=== PATIENT | female | born 1950 | race Caucasian/White ===

== ENCOUNTER 2024-04-25 14:10 | Inpatient (IN) | payer OTHER ==
--- NOTE | 2024-04-25 14:53 | RAD REPORT ---
EXAMINATION: ONE VIEW CHEST XR CLINICAL INDICATION: CHEST PAIN TECHNIQUE: Frontal chest projection is submitted. Examination is limited by patient positioning and t echnique. COMPARISON: No prior exam. FINDINGS: The lungs are diffusely emphysematous but grossly clear. The heart is upper limit of normal in size. No displaced fractures identified. IMPRESSION: COPD without an acute process suspected.
[2024-04-25 15:36] LABS: Absolute Basophils 0.1 K/uL (0-0.5); Absolute Eosinophils 0.2 K/uL (0-0.5); Absolute Lymphocytes (CBC) 3.5 K/uL (0.7-4.9); Absolute Monocytes 0.8 K/uL (0.1-1.3); Absolute Neutrophil 5.9 K/uL (1.8-8.0); Basophils % 0.8 % (0-1.3); Eosinophils % 2.1 % (0-4.4); Hematocrit 46.9 % (36.0-45.0); Hemoglobin 15.5 g/dL (12.0-15.0); Lymphocytes % 33.2 % (15.3-44.8); MCH 29.1 pg (27.0-35.0); MCV 88.1 fL (80-100); MPV 8.4 fL (7.6-11.3); Monocytes % 7.9 % (3.3-12.3); Platelets 312 thou/uL (152-406); RBC Red Blood Cell Count 5.33 M/uL (3.86-4.86); Red Cell Distribution Width 13.6 % (12.1-15.2)
[2024-04-25 15:37] LABS: PT Prothrombin Time 11.4 SECONDS (9.4-12.5); Protime INR 1.02
[2024-04-25 15:56] LABS: Anion Gap 9.5 mEq/L (5.0-15.0); Potassium 3.5 mEq/L (3.5-5.1)
[2024-04-25 15:57] LABS: Albumin 3.7 g/dL (3.4-5.0); Bilirubin Direct 0.1 mg/dL (0-0.2); Bilirubin Indirect, Calculated 0.2 mg/dL (0.2-0.8); Bilirubin Total 0.3 mg/dL (0.2-1.0); Globulin 3.8 g/dL (2.3-3.5); Protein, Total 7.5 g/dL (6.4-8.2)
[2024-04-25 15:58] LABS: Troponin High Sensitivity 17.6 (<58.9)
--- NOTE | 2024-04-25 16:43 | EDPHYS ---
Physician Documentation [facility] Name: Maribel Chacon Age: 73 yrs Sex: Female : 1950 Arrival Date: 04/25/2024 Time: 14:10 Bed 14 Private MD: ED Physician Derrick Bray HPI: 04/25 15:02 This 73 yrs old Unknown Female presents to ER via Ambulatory with complaints of Chest sp3 Pain, High Blood Pressure. 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 Today she states that it happened again while in school described as a crushing chest pain midsternum and she "looked pale" according to bystanders. School nurse advised her to come to the ED for evaluation. Patient states that she does not want to be admitted to the hospital under any circumstance. Her chest pain is now resolved and she would like to go home because she "has to teach tomorrow". I have advised her normal protocols for intermediate risk chest pain. See MDM for further discussion.. Historical: - Allergies: 14:26 Sulfa (Sulfonamide Antibiotics); iw - Immunization history:: Adult Immunizations not up to date. - Infectious Disease History:: Denies. - Social history:: Smoking status: Patient denies any tobacco usage or history of. ROS: 15:06 Constitutional: Negative for fever, chills, and weight loss, Eyes: Negative for injury, sp3 pain, redness, and discharge, ENT: Negative for injury, pain, and discharge, Neck: Negative for injury, pain, and swelling, Respiratory: Negative for shortness of breath, cough, wheezing, and pleuritic chest pain, Abdomen/GI: Negative for abdominal pain, nausea, vomiting, diarrhea, and constipation, Back: Negative for injury and pain, MS/Extremity: Negative for injury and deformity, Skin: Negative for injury, rash, and discoloration, Neuro: Negative for headache, weakness, numbness, tingling, and seizure, Psych: Negative for depression, anxiety, suicide ideation, homicidal ideation, and hallucinations, Allergy/Immunology: Negative for hives, rash, and allergies, Endocrine: Negative for neck swelling, polydipsia, polyuria, polyphagia, and marked weight changes, Hematologic/Lymphatic: Negative for swollen nodes, abnormal bleeding, and unusual bruising, 15:06 All other systems are negative, Exam: 15:09 Constitutional: This is a well developed, well nourished patient who is awake, alert, sp3 and in no acute distress. Head/Face: Normocephalic, atraumatic. Eyes: Pupils equal round and reactive to light, extra-ocular motions intact. Lids and lashes normal. Conjunctiva and sclera are non-icteric and not injected. Cornea within normal limits. Periorbital areas with no swelling, redness, or edema. ENT: Nares patent. No nasal discharge, no septal abnormalities noted. External auditory canals are clear. Oropharynx with no redness, swelling, or masses, exudates, or evidence of obstruction, uvula midline. Mucous membranes moist. Neck: Trachea midline, no thyromegaly or masses palpated, and no cervical lymphadenopathy. Supple, full range of motion without nuchal rigidity, or vertebral point tenderness. No Meningismus. Chest/axilla: Normal chest wall appearance and motion. Nontender with no deformity. No lesions are appreciated. Cardiovascular: Regular rate and rhythm with a normal S1 and S2. No gallops, murmurs, or rubs. Normal PMI, no JVD. No pulse deficits. Respiratory: Lungs have equal breath sounds bilaterally, clear to auscultation and percussion. No rales, rhonchi or wheezes noted. No increased work of breathing, no retractions or nasal flaring. Abdomen/GI: Soft, non-tender, with normal bowel sounds. No distension or tympany. No guarding or rebound. No evidence of tenderness throughout. Back: No spinal tenderness. No costovertebral tenderness. Full range of motion. Skin: Warm, dry with normal turgor. Normal color with no rashes, no lesions, and no evidence of cellulitis. MS/ Extremity: Pulses equal, no cyanosis. Neurovascular intact. Full, normal range of motion. Neuro: Awake and alert, GCS 15, oriented to person, place, time, and situation. Cranial nerves II-XII grossly intact. Motor strength 5/5 in all extremities. Sensory grossly intact. Cerebellar exam normal. Normal gait. Psych: Awake, alert, with orientation to person, place and time. Behavior, mood, and affect are within normal limits. 15:09 ECG was reviewed by the Attending Physician. EKG demonstrates normal sinus rhythm at 91 bpm with normal intervals, normal QRS, normal axis, nonspecific diffuse ST/T changes without evidence of acute ischemia. Vital Signs: 14:25 Pulse 90; Resp 16; Temp 97.5; Pulse Ox 98% ; Height 5 ft. 2 in. ; Pain 4/10; iw 14:45 BP 160 / 77; Pulse 83; Resp 16; Pulse Ox 99% ; me1 15:00 BP 130 / 97; Pulse 88; Resp 16; Pulse Ox 99% on R/A; me1 16:00 BP 146 / 78; Pulse 81; Resp 12; Pulse Ox 97% on R/A; me1 17:00 BP 150 / 65; Pulse 84; Resp 18; Pulse Ox 99% ; me1 18:00 BP 157 / 73; Pulse 82; Resp 17; Pulse Ox 98% ; me1 14:25 Pain Scale: Adult iw MDM: 14:27 Medical Screening Exam initiated sp3 15:10 Data reviewed: vital signs, nurses notes, lab test result(s), EKG, radiologic studies. sp3 ED course: 73-year-old female with nonspecific chest pain off and on for 2 months with a episode today at school at her place of occupation, now resolved. Differential diagnosis includes acute coronary syndrome, angina, gastritis, GERD, musculoskeletal pain, among others. Patient also states she has been having a lot of stress due to her son having a warrant and her having to post a $100,000 goss. 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 Patient vehemently refuses to be admitted under any circumstance because she "has to teach tomorrow". I explained to her standard chest pain algorithms for intermediate risk which I classify her in given her past medical history. CT scan is not available here however I do not believe patient has a PE or aortic dissection. Ideally we would want patient to be admitted for serial cardiac markers and cardiology consultation however patient declines. Will obtain 1 set and outpatient follow-up in cardiology office which she states she will do. She understands the risks of potentially missing a cardiac event including , disability, pain and suffering, etc.. 16:37 ED course: Initial workup negative. Will place patient in 23-hour observation with sp3 morning stress test. I discussed the case with internal medicine who will be handling her moving forward.. 04/25 14:28 Order name: Basic Metabolic Panel; Complete Time: 16:24 sp3 04/25 14:28 Order name: CBC with Diff; Complete Time: 16:24 sp3 04/25 14:28 Order name: LFT's; Complete Time: 16:24 sp3 04/25 14:28 Order name: Magnesium; Complete Time: 16:24 sp3 04/25 14:28 Order name: NT PRO-BNP; Complete Time: 16:24 sp3 04/25 14:28 Order name: PT-INR; Complete Time: 16:24 sp3 04/25 14:28 Order name: Troponin HS; Complete Time: 16:24 sp3 04/25 15:13 Order name: D-Dimer; Complete Time: 16:24 sp3 04/25 17:23 Order name: CBC with Automated Diff EDMS 04/25 17:23 Order name: CBC with Automated Diff EDMS 04/25 17:23 Order name: Lipid Profile EDMS 04/25 17:23 Order name: Lipid Profile EDMS 04/25 17:23 Order name: Troponin High Sensitivity EDMS 04/25 17:23 Order name: Troponin High Sensitivity EDMS 04/25 17:23 Order name: Troponin High Sensitivity EDMS 04/25 14:28 Order name: XRAY Chest (1 view); Complete Time: 14:58 sp3 04/25 17:23 Order name: Echo with Doppler EDMS 04/25 17:23 Order name: Echo with Doppler EDMS 04/25 17:23 Order name: CONS Physician Consult EDMS 04/25 14:28 Order name: Cardiac monitoring; Complete Time: 15:08 sp3 04/25 14:28 Order name: EKG - Nurse/Tech; Complete Time: 15:08 sp3 04/25 14:28 Order name: IV Saline Lock; Complete Time: 15:21 sp3 04/25 14:28 Order name: Labs collected and sent; Complete Time: 15:21 sp3 04/25 14:28 Order name: O2 Per Protocol; Complete Time: 15:08 sp3 04/25 14:28 Order name: O2 Sat Monitoring; Complete Time: 15:08 sp3 Administered Medications: No medications were administered Disposition Summary: 04/25/24 16:42 Hospitalization Ordered Notes: Hospitalization Status: Observation sp3 Provider: Ángel Torres sp3 Location: Telemetry/MedSurg (observation) sp3 Condition: Stable sp3 Problem: new sp3 Symptoms: are unchanged sp3 Bed/Room Type: Standard sp3 Room Assignment: 401(04/25/24 17:41) jaShayan Diagnosis - Chest pain, unspecified sp3 Forms: - Medication Reconciliation Form sp3 - SBAR form sp3 - Leadership Thank You Letter sp3 Signatures: Dispatcher [employer] EDMS Sada Gilliam bd Meli Arteaga, RN WHITLEY iw Damien Fererr RN RN ja1 Derrick Bray MD MD sp3 Corrections: (The following items were deleted from the chart) 14:28 14:28 BASIC METABOLIC PANEL+C.LAB.BRZ ordered. EDMS EDMS 14:28 14:28 CBC+H.LAB.BRZ ordered. EDMS EDMS 14:28 14:28 HEPATIC FUNCTION+C.LAB.BRZ ordered. EDMS EDMS 14:28 14:28 MAGNESIUM+C.LAB.BRZ ordered. EDMS EDMS 14:28 14:28 PROBNP+C.LAB.BRZ ordered. EDMS EDMS 14:28 14:28 PROTIME (+INR)+COAG.LAB.BRZ ordered. EDMS EDMS 14:28 14:28 Troponin High Sensitivity+C.LAB.BRZ ordered. EDMS EDMS 14:28 14:28 Chest Single View+RAD.RAD.BRZ ordered. EDMS EDMS 17:41 16:42 sp3 bd 17:41 17:41 204 bd ja1
--- NOTE | 2024-04-25 16:43 | ER ---
Nurse's Notes [facility] Name: Maribel Chacon Age: 73 yrs Sex: Female : 1950 Arrival Date: 04/25/2024 Time: 14:10 Bed 14 Private MD: Diagnosis: Chest pain, unspecified Presentation: 04/25 14:24 Chief complaint: Patient states: has been having episodes of chest pain that radiates iw up into her shoulders and head , happening for months , today at school it happened again and someone told her she looked pale and wanted to get checked out, the episodes last about 15 minutes. Coronavirus screen: At this time, the client does not indicate any symptoms associated with coronavirus-19. Ebola Screen: No symptoms or risks identified at this time. Initial Sepsis Screen: Does the patient meet any 2 criteria? No. Patient's initial sepsis screen is negative. Does the patient have a suspected source of infection? No. Patient's initial sepsis screen is negative. Risk Assessment: Do you want to hurt yourself or someone else? Patient reports no desire to harm self or others. 14:24 Method Of Arrival: Ambulatory iw 14:24 Acuity: HANNA 3 iw 14:25 Onset of symptoms was 2023. iw Historical: - Allergies: 14:26 Sulfa (Sulfonamide Antibiotics); iw - Immunization history:: Adult Immunizations not up to date. - Infectious Disease History:: Denies. - Social history:: Smoking status: Patient denies any tobacco usage or history of. Screenin:20 [facility] ED Fall Risk Assessment (Adult) History of falling in the last 3 months, me1 including since admission No falls in past 3 months (0 pts) Confusion or Disorientation No (0 pts) Intoxicated or Sedated No (0 pts) Impaired Gait No (0 pts) Mobility Assist Device Used No (0 pt) Altered Elimination No (0 pt) Score/Fall Risk Level 0 - 2 = Low Risk Maintained a safe environment, Provided non-skid footwear, Hourly rounding (assess needs \T\ fall precautionary measures) done. Abuse screen: Denies threats or abuse. Nutritional screening: No deficits noted. Tuberculosis screening: No symptoms or risk factors identified. Assessment: 15:20 General: Appears comfortable, well groomed, well developed, well nourished, Behavior is me1 calm, cooperative, appropriate for age, Reports has been having episodes of chest pain that radiates up into her shoulders and head , happening for months , today at school it happened again and someone told her she looked pale and wanted to get checked out, the episodes last about 15 minutes. Pain: Complains of pain in chest Pain radiates to right sternocleidomastoid, left sternocleidomastoid, right arm and left arm Pain currently is 0 out of 10 on a pain scale. at worst was 10 out of 10 on a pain scale. Quality of pain is described as pressure, Pain began suddenly, Is episodic, lasting a few minutes. Also complains of shortness of breath. Neuro: Level of Consciousness is awake, alert, obeys commands, Oriented to person, place, time, situation, Appropriate for age. Cardiovascular: Patient's skin is warm and dry. Respiratory: Airway is patent Trachea midline Respiratory effort is even, unlabored, Respiratory pattern is regular, symmetrical. GI: No signs and/or symptoms were reported involving the gastrointestinal system. Patient currently denies nausea. : No signs and/or symptoms were reported regarding the genitourinary system. EENT: No signs and/or symptoms were reported regarding the EENT system. Derm: Skin is intact, is healthy with good turgor, Skin is pink, warm \T\ dry. Musculoskeletal: No signs and/or symptoms reported regarding the musculoskeletal system. Vital Signs: 14:25 Pulse 90; Resp 16; Temp 97.5; Pulse Ox 98% ; Height 5 ft. 2 in. ; Pain 4/10; iw 14:45 BP 160 / 77; Pulse 83; Resp 16; Pulse Ox 99% ; me1 15:00 BP 130 / 97; Pulse 88; Resp 16; Pulse Ox 99% on R/A; me1 16:00 BP 146 / 78; Pulse 81; Resp 12; Pulse Ox 97% on R/A; me1 17:00 BP 150 / 65; Pulse 84; Resp 18; Pulse Ox 99% ; me1 18:00 BP 157 / 73; Pulse 82; Resp 17; Pulse Ox 98% ; me1 14:25 Pain Scale: Adult iw ED Course: 14:17 Patient arrived in ED. sj2 14:20 Derrick Bray MD is Attending Physician. sp3 14:25 Triage completed. iw 14:45 Alison King, RN is Primary Nurse. me1 14:48 XRAY Chest (1 view) In Process Unspecified. EDMS 15:08 EKG done, by ED staff, reviewed by Derrick Bray MD. me1 15:20 No provider procedures requiring assistance completed. Patient maintains SpO2 me1 saturation greater than 95% on room air. 15:20 Patient has correct armband on for positive identification. Bed in low position. Call me1 light in reach. Side rails up X 1. Provided Education on: POC. Verbalized understanding.. Client placed on continuous cardiac and pulse oximetry monitoring. NIBP monitoring applied. quality assurance monitor on. Pulse ox on. NIBP on. 15:21 D-Dimer Sent. ld1 15:21 Basic Metabolic Panel Sent. ld1 15:21 CBC with Diff Sent. ld1 15:21 LFT's Sent. ld1 15:21 Magnesium Sent. ld1 15:21 NT PRO-BNP Sent. ld1 15:21 PT-INR Sent. ld1 15:21 Troponin HS Sent. ld1 15:22 Initial lab(s) drawn, by me, sent to lab. Inserted saline lock: 20 gauge in right bc6 forearm, using aseptic technique. Blood collected. Flushed with 10 mL NS. 16:42 Ángel Torres MD is Hospitalizing Provider. sp3 17:50 Patient admitted, IV remains in place. me1 17:52 Arm band placed on Patient placed in an exam room. me1 Administered Medications: No medications were administered Medication: 15:20 VIS not applicable for this client. me1 Outcome: 16:42 Decision to Hospitalize by Provider. sp3 17:50 Admitted to Tele accompanied by tech, via wheelchair, room 401, with chart, Report me1 called to faxed, receipt confirmed with Maddison 17:50 Condition: stable 17:50 Instructed on the need for admit, 18:20 Patient left the ED. me1 Signatures: Dispatcher [employer] Meli Givens, WHITLEY ARREAGA Shakira Mujica RN RN ld1 Derrick Bray MD MD sp3 Judy Back 6 Alison King, WHITLEY RN me1 Juan Manuel Person sj2 Corrections: (The following items were deleted from the chart) 14:26 14:25 Pulse 90bpm; Resp 16bpm; Pulse Ox 98%; Temp 97.5F; Pain 410, Adult; iw iw 15:20 14:24 Chief complaint: Patient states: has been having episodes of chest pain that 1 radiates up into her shoulders and head , happening for months , today at school it happened again and someone told her she looked pale and wanted to get checked out, the episodes last about 15 minutes iw
--- NOTE | 2024-04-25 17:09 | P.HP ---
Patient History Date of Service: 04/25/24 Physical Examination - Studies Laboratory Data (last 24 hrs) 04/25/24 04/25/24 04/25/24 15:20 15:20 15:20 WBC 10.50 Hgb 15.5 H Hct 46.9 H Plt Count 312 PT 11.4 INR 1.02 Sodium 140 Potassium 3.5 BUN 24 H Creatinine 0.84 Glucose 133 H Magnesium 2.0 Total Bilirubin 0.3 AST 13 L ALT 24 Alkaline Phosphatase 77 Assessment and Plan - Advance Directives Does patient have a Living Will: No Does patient have a Durable POA for Healthcare: No
--- NOTE | 2024-04-25 17:25 | P.HP ---
Certification for Inpatient Patient admitted to: Observation With expected LOS: <2 Midnights Patient will require the following post-hospital care: None Practitioner: I am a practitioner with admitting privileges, knowledge of patient current condition, hospital course, and medical plan of care. Services: Services provided to patient in accordance with Admission requirements found in Title 42 Section 412.3 of the Code of Federal Regulations Patient History Date of Service: 04/25/24 Reason for admission: Chest pain rule out acute coronary syndrome History of Present Illness: Patient is a 73-year-old female came to the hospital with chest pain. Patient has been having chest pain for the last week and a half. She has had multiple issues with her 2 sons. One of them was arrested after him the 18 hi. The other 1 is also in retirement and he is going to be coming out in August. She has been overwhelmed with what has been going on with their lives. However, she also has multiple risk factors including hypertension, diabetes type 2, dyslipidemia. She also has a family history of heart disease. Patient's mother had heart disease in her 70s and she has a brother in his 60s with heart disease. Patient is also has been doing a lot of heavy lifting. She is has some reproducible chest pain. In light of everything that is going on with her and the fact that she has not really done a lot to care for herself including not getting any preventative screening she will be admitted to the hospital for observation. Her initial troponin is negative. No abnormalities on the EKG. Patient will get echocardiogram and stress test and if this is negative she should be able to discharge with outpatient follow-up with her LOUANN, Pallavi Zabala nurse practitioner. - Past Medical/Surgical History -: Hypertension -: Type 2 diabetes -: Dyslipidemia - Social History Smoking Status: Former smoker Alcohol use: No CD- Drugs: No Review of Systems 10-point ROS is otherwise unremarkable Physical Examination - Vital Signs Temperature: 98 F Blood Pressure: 110/60 Pulse: 80 Respirations: 18 Pulse Ox (%): 95 - Physical Exam General: Alert, In no apparent distress, Oriented x3 HEENT: Atraumatic, PERRLA, Mucous membr. moist/pink, EOMI, Sclerae nonicteric Neck: Supple, 2+ carotid pulse no bruit, No LAD, Without JVD or thyroid abnormality Respiratory: Clear to auscultation bilaterally, Normal air movement Cardiovascular: Regular rate/rhythm, Normal S1 S2 Gastrointestinal: Normal bowel sounds, Soft and benign, Non-distended, No tenderness Musculoskeletal: No clubbing, No swelling, No tenderness Integumentary: No rashes Neurological: Normal gait, Normal speech, Normal strength at 5/5 x4 extr, Normal tone, Sensation intact, Cranial nerves 3-12 intact, Normal affect Lymphatics: No axilla or inguinal lymphadenopathy - Studies Laboratory Data (last 24 hrs) 04/25/24 04/25/24 04/25/24 15:20 15:20 15:20 WBC 10.50 Hgb 15.5 H Hct 46.9 H Plt Count 312 PT 11.4 INR 1.02 Sodium 140 Potassium 3.5 BUN 24 H Creatinine 0.84 Glucose 133 H Magnesium 2.0 Total Bilirubin 0.3 AST 13 L ALT 24 Alkaline Phosphatase 77 Assessment & Plan - Problems (Diagnosis) (1) Chest pain, rule out acute myocardial infarction Current Visit: Yes Status: Acute - Plan -High-sensitivity troponin -Cardiology consultation -Echocardiogram and stress test per cardiology recommendation -Repeat EKG -Possibly costochondritis with anti-inflammatories -Lipid profile -Strategic Buyer regarding modifying risk for cardiac disease Discharge Plan: Home Plan to discharge in: 24 Hours - Advance Directives Does patient have a Living Will: No Does patient have a Durable POA for Healthcare: No - Code Status/Comfort Care Code Status Assessed: Yes Code Status: Full Code Critical Care: No Time Spent Managing PTS Care (In Minutes): 45
[2024-04-25] MEDS: METOPROLOL TARTRATE 5 MG/5 ML INJ IV STA (18:42)
[2024-04-25] MEDS: MORPHINE 2 MG/ML SYR IV PRN (18:43)
[2024-04-25] MEDS: METOPROLOL TAR 25 MG TAB PO SCH (21:14)
[2024-04-25] MEDS: ENOXAPARIN 40 MG/0.4 ML SQ SCH (21:15)
[2024-04-25] MEDS: NITROGLYCERIN 1 GM PKT TD ONE (21:16)
[2024-04-25] MEDS: HYDROCORTISONE SUC 100 MG INJ IV ONE (21:18)
[2024-04-25 22:50] VITALS: BMI 25.8
[2024-04-26 06:58] LABS: Absolute Basophils 0.1 K/uL (0-0.5); Absolute Eosinophils 0.1 K/uL (0-0.5); Absolute Lymphocytes (CBC) 3.4 K/uL (0.7-4.9); Absolute Monocytes 0.4 K/uL (0.1-1.3); Absolute Neutrophil 4.7 K/uL (1.8-8.0); Basophils % 1.1 % (0-1.3); Eosinophils % 0.9 % (0-4.4); Hematocrit 45.4 % (36.0-45.0); Hemoglobin 14.6 g/dL (12.0-15.0); MCH 28.6 pg (27.0-35.0); MCHC 32.2 g/dL (32.0-36.0); MCV 88.8 fL (80-100); MPV 8.5 fL (7.6-11.3); Monocytes % 4.7 % (3.3-12.3); Neutrophils % 54.3 % (41.7-73.7); Nucleated Red Blood Cells % 0.1 % (0-0); Platelets 298 thou/uL (152-406); RBC Red Blood Cell Count 5.12 M/uL (3.86-4.86); Red Cell Distribution Width 13.2 % (12.1-15.2)
[2024-04-26 07:23] LABS: Troponin High Sensitivity 14.2 pg/mL (<58.9)
[2024-04-26] MEDS: PNEUMOCOCCAL VACCINE 0.5 ML IMVAC ONE (07:45)
[2024-04-26] MEDS: ASPIRIN EC 81 MG TAB PO SCH (07:52)
[2024-04-26] MEDS ORDERED: REGADENOSON 0.4 MG/5 ML SYR IV ONE (08:16)
--- NOTE | 2024-04-26 09:31 | RAD REPORT ---
EXAM: Nuclear medicine cardiac perfusion examination with ejection fraction HISTORY: Chest pain TECHNIQUE: Rest images: 10.8 mCi technetium 99m sestamibi Stress images: 30.4 mCi of technetium 99m sestamibi; Lexiscan COMPARISON: None. FINDINGS: Tomographic images: Fixed defect at the apex, and other fixed defects at the apical to mid septum and anterior wall. Large reversible defect involving the mid to basal anterior wall, mid segment of the septum, and lateral wall apical segment. Gated images: Normal wall motion and ejection fraction of 64%. EDV: 60 mL ESV: 21 mL TID: 1.09 IMPRESSION: Large reversible defect involving the mid to basal anterior wall, mid segment of the septum, and late ral wall apical segment, concerning for ischemia. Left ventricular ejection fraction:64%, within normal. THIS REPORT CONTAINS FINDINGS THAT MAY BE CRITICAL TO PATIENT CARE. The findings were verbally commun icated via telephone to Ángel Torres MD on 04/26/2024 9:28 AM.
--- NOTE | 2024-04-26 12:18 | P.CNS ---
Date of Consult: 04/26/24 Chief Complaint: Chest pain rule out acute coronary syndrome History of Present Illness: Patient with PMH of HTN, HLD, DM presented with chest pain. pressure, left sided that has been going on for months with exertion last up to 15 minutes, denies any other cardiac symptoms. Allergies Sulfa (Sulfonamide Antibiotics) Allergy (Verified 04/25/24 18:34) Shortness of breath Home medications list reviewed: Yes Home Medications: Dapagliflozin Propanediol [Farxiga] 10 mg PO DAILY 04/25/24 Metformin HCl [Metformin HCl ER] 1,000 mg PO BID 04/25/24 Ondansetron [Zofran] 4 mg PO BID 04/25/24 Rosuvastatin Calcium 10 mg PO DAILY 04/25/24 Tirzepatide [Mounjaro] 5 mg SQ SEECOM 04/25/24 Valsartan 160 mg PO DAILY 04/25/24 - Past Medical/Surgical History Diabetic: Yes -: Hypertension -: Type 2 diabetes -: Dyslipidemia - Social History Alcohol use: No CD- Drugs: No Place of Residence: Home Review of Systems 10-point ROS is otherwise unremarkable Physical Examination Temp Pulse Resp BP Pulse Ox 98.3 F 65 18 132/74 99 04/26/24 12:00 04/26/24 12:00 04/26/24 12:10 04/26/24 12:00 04/26/24 12:10 General: Alert, In no apparent distress HEENT: Atraumatic, PERRLA, Mucous membr. moist/pink, EOMI, Sclerae nonicteric Neck: Supple, 2+ carotid pulse no bruit, No LAD, Without JVD or thyroid abnormality Respiratory: Clear to auscultation bilaterally, Normal air movement Cardiovascular: Regular rate/rhythm, Normal S1 S2 Gastrointestinal: Normal bowel sounds, No tenderness Musculoskeletal: No tenderness Integumentary: No rashes Neurological: Normal gait, Normal speech, Normal tone, Normal affect Lymphatics: No axilla or inguinal lymphadenopathy Laboratory Data (last 24 hrs) 04/25/24 04/25/24 04/25/24 15:20 15:20 15:20 WBC 10.50 Hgb 15.5 H Hct 46.9 H Plt Count 312 PT 11.4 INR 1.02 Sodium 140 Potassium 3.5 BUN 24 H Creatinine 0.84 Glucose 133 H Magnesium 2.0 Total Bilirubin 0.3 AST 13 L ALT 24 Alkaline Phosphatase 77 - Problems (1) HTN (hypertension) Current Visit: Yes Status: Acute Plan: continue metoprolol 25 mg po BID Continue to monitor BP. (2) HLD (hyperlipidemia) Current Visit: Yes Status: Acute Plan: Patient LDL is normal but would recommend starting Crestor 20 mg daily (3) Chest pain, rule out acute myocardial infarction Current Visit: Yes Status: Acute Plan: Patient had a stress test that is abnormal, showning possible reversible defect in LAD and LCX territory. NPO after midnight for coronary angiogram in am continue ASA 81 mg daily
--- NOTE | 2024-04-26 14:43 | TREADPHA ---
DX: CHEST PAIN Date of Study: 04/26/2024 Ht: 5' 2 " Wt: 141 lb 6.4 oz Consulting Physician: CAMILA MEDICATIONS: HISTORY: MEDICAL HISTORY OF HYPERTENSION, DIABETES MELLITUS AND HIGH CHOLESTEROL. PHYSICIAL EXAMINATION: RESTING B.P.: 146/85 RESTING H.R.: 71 RESTING EKG: NORMAL SINUS RHYTHM. PROTOCOL: LEXISCAN EXERCISE TIME: 3:30 B.P. AT PEAK STRESS: 152/74 IMPRESSION: LEXISCAN INJECTED PER PROTOCOL. CARDIOLITE INJECTED. SEE NUCLEAR MEDICINE REPORT. NO SUPRAVENTRICULAR OR VENTRICULAR TACHYCARDIA. NO ARRHYTHMIAS NOTED. DENIES SHORTNESS OF BREATH. COMPLAINTS OF MILD CHEST PAIN DURING TEST. CAFFEINE PROVIDED.
[2024-04-26] MEDS: ALPRAZOLAM 0.25 MG TABLET PO PRN (21:26)
[2024-04-27] MEDS ORDERED: NA CHLORIDE 0.9% 500 ML ONE (09:54)
[2024-04-27] MEDS ORDERED: FENTANYL CITR 100 MCG/2 ML ONE (10:10)
[2024-04-27] MEDS ORDERED: HEPA 1000U/500MLS 3,000 UNIT/1,500 ML BAG IV ONE (10:10)
[2024-04-27] MEDS ORDERED: HEPARIN 5000 UNIT/ML 1 ML VIAL ONE (10:10)
[2024-04-27] MEDS ORDERED: MIDAZOLAM HCL 2 MG/2 ML INJ ONE (10:10)
[2024-04-27] MEDS ORDERED: LIDOCAINE 1% 20 ML MDV ONE (10:10)
[2024-04-27] MEDS ORDERED: PNEUMOCOCCAL VACCINE 0.5 ML IMVAC ONE (12:00)
[2024-04-27 12:17] VITALS: O2SAT 94
--- NOTE | 2024-04-27 14:18 | ECHO ---
HEIGHT: 5 ft 2 in WEIGHT: 141 lb 6.4 oz DATE OF STUDY: 04/26/[address]: Ángel Torres MD 2-DIMENSIONAL: YES M.MODE: YES DOPPLER: YES COLOR FLOW: YES TDS: NO PORTABLE: YES DEFINITY: NO BUBBLE STUDY: NO DIAGNOSIS: CHEST PAIN, RULE OUT ACS CARDIAC HISTORY: CATHERIZATION: NO SURGERY: NO PROSTHETIC VALVE: NO PACEMAKER: NO MEASUREMENTS (cm) DIASTOLIC (NORMALS) SYSTOLIC (NORMALS) IVSd 1.2 (0.6-1.2) LA Diam 2.9 (1.9-4.0) LVEF 60-65% LVIDd 4.6 (3.5-5.7) LVIDs 3.0 (2.0-3.5) %FS 35% LVPWd 1.2 (0.6-1.2) Ao Diam 2.5 (2.0-3.7) 2 DIMENSIONAL ASSESSMENT: RIGHT ATRIUM: NORMAL LEFT ATRIUM: NORMAL RIGHT VENTRICLE: NORMAL LEFT VENTRICLE: NORMAL TRICUSPID VALVE: NORMAL MITRAL VALVE: NORMAL PULMONIC VALVE: NORMAL AORTIC VALVE: NORMAL PERICARDIAL EFFUSION: NONE AORTIC ROOT: NORMAL LEFT VENTRICULAR WALL MOTION: NORMAL. DOPPLER/COLOR FLOW: NORMAL. COMMENTS: 1. NORMAL LEFT VENTRICULAR SYSTOLIC FUNCTION. LEFT VENTRICULAR EJECTION FRACTION 60-65%. NORMAL WALL MOTION. 2. NORMAL DIASTOLIC FUNCTION. TECHNOLOGIST: ROME SCHMIDT
[2024-04-27] MEDS: HEPARIN/D5W 25,000 UNIT/500 ML BAG IV SCH (16:08)
[2024-04-27 17:20] VITALS: BP 140/64; TEMP 98.2
[2024-04-27] MEDS ORDERED: Mupirocin NASAL 2 APPL/1 GM TUBE NAS SCH (21:00)
--- NOTE | 2024-04-28 11:14 | OP ---
Date of Procedure: 04/27/2024 Surgeon: Fransisco Galarza Procedures Performed: 1.Left heart catheterization. 2.Selective coronary angiogram. Indication For Procedure: Unstable angina. Abnormal stress test. Complications: None. Estimated Blood Loss: Less than 50 cc. Access: Right radial, closed by TR band. Sedation Time: 20 minutes with 1 of Versed and 25 of fentanyl. Description Of Procedure: After risks, and benefits, and alternatives were explained to the patient, patient agreed to proceed with procedure and signed informed consent. The patient was brought back to the blood bank laboratory professional, prepped and draped in sterile fashion. Time-out was performed. Sedation was admini stered. Next, right radial access was obtained using ultrasound-guided micropuncture technique. Tig er 4.0 catheter was advanced over a J-wire to the LV cavity. Pullback did not show any gradient. Sa me catheter was used for selective angiogram of the left and right coronary system. At the end of pr ocedure, catheter was removed over a J-wire. Sheath was removed. TR band was applied. Hemostasis w as achieved and patient was moved back to Recovery in stable condition. Findings: 1.Left main absent. 2.LAD; proximal 99% disease followed by mid diffuse 70% disease, and mid to distal mild luminal irre gularities. 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 4.RCA; large dominant with a proximal, mild luminal irregularities, and mid 60% to 70% disease, then mild luminal irregularities. 5.RPDA with ostial to proximal 60% to 70% disease and mild luminal irregularities. Assessment And Plan: Significant LAD, significant left circ, and significant RCA disease. The plan will be to transfer for urgent inpatient CABG. CAROLYN/RADHA Voice ID: [id number] Report ID: [id number]
--- NOTE | 2024-05-01 11:03 | EKG ---
Test Date: 2024-04-25 Test Time: 15:01:37 Lead Nurse: MEASUREMENT RESULTS: Intervals: Rate: 91 IN: 156 QRSD: 80 QT: 368 QTc: 452 [place]: P: 66 IN: 156 QRS: 33 T: 111 INTERPRETIVE STATEMENTS: Normal sinus rhythm Nonspecific ST and T wave abnormality Abnormal ECG No previous ECG available for comparison Electronically Signed On 05-01-24 10:57:39 BOARD CERTIFIED ORTHODONTIST by Fransisco Galarza
== END 2024-04-27 17:45 | disposition short-term general hospital (02) | DRG 287 ==
LOC: ER 14:10 → ERHOLD 17:18 → 4TH 17:53 → OBSVTOIN 04-26 21:40 → 3RD-ICU 04-27 12:44
PROVIDERS: ADMIT Hospitalist; ATTEND Hospitalist
PROC: 4A023N7 Measurement of Cardiac Sampling and Pressure, Left Heart, Percutaneous Approach (ICD-10-PCS; principal; 2024-04-27)
PROC: B2111ZZ Fluoroscopy of Multiple Coronary Arteries using Low Osmolar Contrast (ICD-10-PCS; 2024-04-27)
PROC: 02HV33Z Insertion of Infusion Device into Superior Vena Cava, Percutaneous Approach (ICD-10-PCS; 2024-04-27)
DX: R07.9 Chest pain, unspecified (principal); I10 Essential (primary) hypertension; E78.5 Hyperlipidemia, unspecified; E11.9 Type 2 diabetes mellitus without complications; Z88.2 Allergy status to sulfonamides; Z87.891 Personal history of nicotine dependence; Z79.84 Long term (current) use of oral hypoglycemic drugs; Z79.899 Other long term (current) drug therapy
CPT/HCPCS: 36415; 71045; 76937; 78452; 80048; 80061; 80076; 82947; 83735; 83880; 84484; 85025; 85379; 85610; 93005; 93017; 93306; 93458; 99152; 99153; 99285; A9500; C1893; G0378; J1644; J1650; J1720; J2003; J2250; J2270; J2785; J3010; J7040; Q9966